=== PATIENT | female | born 1965 | race Hispanic/Latino ===

== ENCOUNTER → 2023-10-13 | Emergency (ER) | payer OTHER ==
--- NOTE | 2023-10-13 20:21 | EDPHYS ---
Physician Documentation [facility] Name: Sandra Wolff Age: 58 yrs Sex: Female : 1965 Arrival Date: 10/13/2023 Time: 18:42 Bed DX3 Private MD: ED Physician William Pike HPI: 10/12 19:34 This 58 yrs old Female presents to ER via Ambulatory with complaints of Flu ec2 Symptoms. 19:34 Patient arrives today for evaluation of URI signs and symptoms. Patient reports ec2 persistent cough, subjective shortness of breath. Patient reports body aches as well as sore throat and congestion.. Historical: - Allergies: 19:23 No Known Allergies; ap3 - Home Meds: 19:23 Plavix Oral [Active]; Metformin Oral [Active]; ap3 - PMHx: 19:23 Diabetes mellitus; ap3 - Immunization history:: Client reports receiving the 2nd dose of the Covid vaccine. - Social history:: Smoking status: Patient denies any tobacco usage or history of. ROS: 19:34 Constitutional: as per hpi ec2 Exam: 19:34 Constitutional: GEN: NAD Head: atraumatic Eyes: EOMI Ears: External ears are ec2 normal. CV: regular rate LUNGS: no respiratory distress, no wheezes, rales, or rhonchi ABD: non-distended SKIN: no evidence of rashes MSK: no evidence of trauma NEURO: moves all extremities equally Vital Signs: 19:22 BP 143 / 81; Pulse 89; Resp 21; Temp 98.9; Pulse Ox 98% ; Weight 120.2 kg; Height 6 ft. ap3 1 in. ; 19:22 Body Mass Index 34.96 (120.20 kg, 185.42 cm) ap3 MDM: 19:31 Patient medically screened. ec2 19:34 Data reviewed: vital signs. ED course: Patient arrives today for URI signs and ec2 symptoms. Examination remarkable for well-appearing nontoxic dividual is otherwise in no acute distress. Will obtain chest x-ray. Evaluating for pneumonia, volume overload, ultimately suspect viral infection causing patient's symptoms.. 20:13 ED course: Chest x-ray independently reviewed and interpreted by me, shows no ec2 significant cardiomegaly, no pleural effusions, no evidence of focal pneumonia. For the patient's sore throat will start her on prednisone, will give her as needed albuterol as well. Will discharge home, suspect viral infection causing patient's symptoms. 10/12 19:29 Order name: CXR XRAY ec2 Administered Medications: No medications were administered Disposition Summary: 10/13/23 20:20 Discharge Ordered Notes: Location: Home ec2 Condition: Stable ec2 Diagnosis - Viral infection, unspecified ec2 Followup: ec2 - With: Private Physician - When: - Reason: Recheck today's complaints Discharge Instructions: - Discharge Summary Sheet ec2 - Viral Illness, Adult ec2 Forms: - Medication Reconciliation Form ec2 - Thank You Letter ec2 - Antibiotic Education ec2 - Prescription Opioid Use ec2 - Patient Portal Instructions ec2 - Leadership Thank You Letter ec2 Prescriptions: - Prednisone 20 mg Oral tablet - take 1 tablet ORAL route once daily for 5 days; 5 tablet; Refills: 0, Product ec2 Selection Permitted Signatures: Dispatcher [employer] Ericka Azar RN RN ap3 William Pike MD MD ec2
--- NOTE | 2023-10-13 20:21 | ER ---
Nurse's Notes [facility] Name: Sandra Wolff Age: 58 yrs Sex: Female : 1965 Arrival Date: 10/13/2023 Time: 18:42 Bed DX3 Private MD: Diagnosis: Viral infection, unspecified Presentation: 10/12 19:22 Chief complaint: Patient states: she has been having cough, congestion and fevers for ap3 approx 4-5 days. patient also complains of shortness of breath during this time as well. Coronavirus screen: Client presents with at least one sign or symptom that may indicate coronavirus-19. Ebola Screen: No symptoms or risks identified at this time. Initial Sepsis Screen: Does the patient meet any 2 criteria? No. Patient's initial sepsis screen is negative. Does the patient have a suspected source of infection? No. Patient's initial sepsis screen is negative. Risk Assessment: Do you want to hurt yourself or someone else? Patient reports no desire to harm self or others. Onset of symptoms was October 08, 2023. 19:22 Method Of Arrival: Ambulatory ap3 19:22 Acuity: CLEOPATRA 3 ap3 Triage Assessment: 19:25 General: Appears in no apparent distress. Behavior is calm, cooperative, appropriate ap3 for age. Pain:. Neuro: Level of Consciousness is awake, alert, obeys commands, Oriented to person, place, time, situation. Cardiovascular: Patient's skin is warm and dry. Respiratory: Reports shortness of breath cough that is Airway is patent Respiratory effort is even, unlabored, Respiratory pattern is regular, symmetrical. Historical: - Allergies: 19:23 No Known Allergies; ap3 - Home Meds: 19:23 Plavix Oral [Active]; Metformin Oral [Active]; ap3 - PMHx: 19:23 Diabetes mellitus; ap3 - Immunization history:: Client reports receiving the 2nd dose of the Covid vaccine. - Social history:: Smoking status: Patient denies any tobacco usage or history of. Screenin:24 [facility] ED Fall Risk Assessment (Adult) History of falling in the last 3 months, ap3 including since admission No falls in past 3 months (0 pts) Confusion or Disorientation No (0 pts) Intoxicated or Sedated No (0 pts) Impaired Gait No (0 pts) Mobility Assist Device Used No (0 pt) Altered Elimination No (0 pt) Score/Fall Risk Level 0 - 2 = Low Risk Oriented to surroundings, Maintained a safe environment, Educated pt \T\ family on fall prevention, incl call for assistance when getting out of bed, Assessed \T\ reinforced patient's understanding of fall precautions, Provided non-skid footwear, Hourly rounding (assess needs \T\ fall precautionary measures) done, Used ambulatory aids as needed (educated on \T\ assisted with), Used gait belt as appropriate. Abuse screen: Denies threats or abuse. Nutritional screening: No deficits noted. Tuberculosis screening: No symptoms or risk factors identified. Vital Signs: 19:22 BP 143 / 81; Pulse 89; Resp 21; Temp 98.9; Pulse Ox 98% ; Weight 120.2 kg; Height 6 ft. ap3 1 in. ; 19:22 Body Mass Index 34.96 (120.20 kg, 185.42 cm) ap3 ED Course: 18:49 Patient arrived in ED. im 18:52 William Pike MD is Attending Physician. ec2 19:23 Triage completed. ap3 19:26 Arm band placed on right wrist. ap3 20:24 CXR XRAY In Process Unspecified. EDMS 20:24 Provided Education on: discharge instructions. ap3 20:24 Patient has correct armband on for positive identification. ap3 20:24 No provider procedures requiring assistance completed. Patient did not have IV access ap3 during this emergency room visit. Administered Medications: No medications were administered Medication: 20:24 VIS not applicable for this client. ap3 Outcome: 20:20 Discharge ordered by . ec2 20:24 Discharged to home ambulatory, ap3 20:24 Condition: good 20:24 Discharge instructions given to patient, Instructed on discharge instructions, follow up and referral plans. medication usage, Demonstrated understanding of instructions, follow-up care, medications, Prescriptions given X 1, 20:24 Patient left the ED. ap3 Signatures: Dispatcher [employer] Ericka Azar RN RN ap3 Jennifer Maldonado William Pike MD MD ec2
--- NOTE | 2023-10-13 20:27 | RAD REPORT ---
EXAM DESCRIPTION: RAD - Chest Single View - 10/13/2023 8:22 pm CLINICAL HISTORY: COUGH Chest pain. COMPARISON: No comparisons FINDINGS: Portable technique limits examination quality. The lungs are emphysematous but grossly clear. The heart is normal in size. No displaced fractures. IMPRESSION: No acute intrathoracic process suspected.
== END ==
LOC: ER 18:42
DX: B34.9 Viral infection, unspecified (principal); E11.9 Type 2 diabetes mellitus without complications; Z79.01 Long term (current) use of anticoagulants
CPT/HCPCS: 71045; 99283